=== PATIENT | female | born 1945 | race Caucasian/White ===

== ENCOUNTER 2022-03-06 08:53 | Day surgery (SDC) | payer MEDICARE, SELFPAY ==
[2022-03-06] VITALS (8 sets, daily range): BP systolic 117–152; BP diastolic 52–81; PULSE 56–64; RESP 16; TEMP 36.2–36.5; O2SAT 94–95; BMI 26.6
[2022-03-06] MEDS: Lactated Ringers 1,000 ML 15 ML IV (09:22)
[2022-03-06] MEDS: Lidocaine 1% (5 ml sdv) 5 ML Vial (10:13)
[2022-03-06] MEDS: MethylPREDNISolone Acetate 40 MG/ML Vial IM ×2 (10:13)
[2022-03-06] MEDS: Bupivacaine 0.25% 30 ML Vial (10:13)
[2022-03-06] MEDS: 0.9% Normal Saline (Pres. free 10 ML Vial (10:13)
--- NOTE | 2022-03-06 10:30 | RAD_ITS ---
INDICATION: Caudal epidural block. EXAMINATION/TECHNIQUE: X-RAY - IR Fluoro Guide Injection Spine COMPARISON: None. FLUOROSCOPY TIME: 0:04 minutes FINDINGS: 2 spot fluoroscopic images were obtained intraoperatively. Images demonstrate the needle placement for caudal epidural block. No radiologist was present for the procedure, please refer to operative report for details. RAD/Fluor Guidance for Spine Inj IMPRESSION: Please refer to operative report for details. Electronically Signed: Papi Jose MD at 7:53 EDT ,
--- NOTE | 2022-03-06 12:29 | OP.PCM_ITS ---
Report of Operation Date of Procedure: 03/06/22 Pre-Operative Diagnosis: Lumbosacral radiculopathy, lumbosacral degenerative di sc disease, lumbosacral spinal stenosis Post-Operative Diagnosis: Lumbosacral radiculopathy, lumbosacral degenerative disc disease, lumbosacral spinal stenosis Surgery/Procedure Performed:: Caudal epidural steroid injection under fluoroscopic guidance Type of Anesthesia: MAC Estimated Blood Loss (mL): Minimal Description of Procedure: DESCRIPTION OF PROCEDURE: History and physical of today was reviewed. Risks and benefits of the procedure were explained. The patient understood and agreed to proceed. Informed consent was obtained. IV inserted per routine protocol. The patient was taken to the operating room and placed in the prone position with a pillow positioned underneath the abdomen. The lower back and tailbone area was prepped and draped in a sterile fashion using iodine x3. Under fluoroscopy guidance on a lateral view, the caudal space was identified. The skin and subcutaneous tissue was anesthetized with approximately 3 mL of 1% lidocaine using a 25-gauge regular needle. Under direct visualization with fluoroscopy, using a 22-gauge 3-1/2-inch spinal needle, the needle was advanced via the skin through the sacral hiatus. The tip of the needle was passed through the sacrococcygeal ligament and advanced to approximately S4 area. After negative aspiration of blood or CSF, a total of 3 mL of contrast was injected to confirm correct placement of the needle as well as cephalad spread. The spread was followed to approximately L5 area. After confirmation on AP as well as lateral view and repeated negative aspiration, a total of 15 mL of preservative-free 0.125% Marcaine with 80 mg of Depo-Medrol was injected easily. The needle was then removed intact. The patient experienced no sign or symptoms of intrathecal or intravascular injection. The patient experienced no paresthesia. The procedure was completed without any apparent difficulty or any complications. The patient appeared to tolerate it well. ASSESSMENT AND PLAN: This is a 76-year-old female with lumbosacral radiculopathy, lumbosacral degenerative disc disease, lumbosacral spinal stenosis status post caudal epidural steroid injection, patient will continue her current medications, patient will follow in approximately 2 weeks for reevaluation. Complications None
== END 2022-03-06 11:37 | disposition home or self-care (01) ==
LOC: SDC 08:57 → AC 09:07
PROVIDERS: PCP Family Medicine; Referring Provider Anesthesiology Pain Medicine; Visit Provider Anesthesiology Pain Medicine
PROC: 3E0S3BZ Introduction of Anesthetic Agent into Epidural Space, Percutaneous Approach (ICD-10-PCS; CPT 62282; principal; 2022-03-06 10:25)
DX: M51.17 Intervertebral disc disorders with radiculopathy, lumbosacral region (principal); M48.07 Spinal stenosis, lumbosacral region; I10 Essential (primary) hypertension; E78.00 Pure hypercholesterolemia, unspecified; K21.9 Gastro-esophageal reflux disease without esophagitis; F32.A Depression, unspecified; F41.9 Anxiety disorder, unspecified; Z79.82 Long term (current) use of aspirin; Z79.899 Other long term (current) drug therapy
CPT/HCPCS: 62323; 64483; 77003; J7120; J3490

== ENCOUNTER 2022-09-11 05:43 | Day surgery (SDC) | payer MEDICARE, SELFPAY ==
[2022-09-11 06:22] VITALS: BP 151/77; PULSE 64; RESP 16; TEMP 36.4; O2SAT 94; BMI 26.7
[2022-09-11] MEDS: Lactated Ringers 1,000 ML 15 ML IV (06:30)
--- NOTE | 2022-09-11 06:30 | RAD_ITS ---
PROCEDURE: Right L4-S1 radiofrequency ablation. DATE OF EXAMINATION: 09/11/2022. INDICATION: Female, 77 years old. Chronic low back pain. FLUOROSCOPY TIME (if supplied): (16 seconds) minutes/seconds. 3.72 mGy. 7 images were submitted. RAD/Lumbar Spine 2 or 3 Views IMPRESSION: Intraoperative imaging provided for right L5-S1 radiofrequency ablation. Electronically Signed: Naeem Martines MD at 8:32 EST ,
[2022-09-11] MEDS: Lidocaine 1% (20 ml mdv) 20 ML Vial (07:45)
[2022-09-11] MEDS: MethylPREDNISolone Acetate 40 MG/ML Vial IM (07:46)
--- NOTE | 2022-09-11 07:58 | PCM.OPRPT ---
Report of Operation Date of Procedure: 09/11/22 Pre-Operative Diagnosis: Lumbosacral spondylosis, lumbosacral degenerative disc disease, lumbar facet arthropathy Post-Operative Diagnosis: Lumbosacral spondylosis, lumbosacral degenerative disc disease, lumbar facet arthropathy Surgery/Procedure Performed:: Right-sided lumbar radiofrequency ablation of the medial branch L4, L5, S1 Type of Anesthesia: MAC Estimated Blood Loss (mL): Minimal Description of Procedure: History and physical today was reviewed. Risks and benefits of procedure explained. The patient understood, agreed to the procedure and informed consent was obtained. IV inserted per routine protocol. The patient was taken to the operating room, placed in the prone position with a pillow positioned underneath the abdomen. The right side of the lower back was prepped and draped in a sterile fashion using iodine x 3. Under fluoroscopy guidance, on an oblique view, the L3 through S1 vertebral bodies were visualized. The skin and subcutaneous tissue was anesthetized with approximately 10 mL of 1% lidocaine using a 25-gauge regular needle. Under direct visualization with fluoroscopy at approximately 25-degree angle, starting on the right L3, ending on the right S1 passing through the L4-L5 using a 20-gauge 15 cm with a 10 mm curved active tip radiofrequency ablation needle the needle passed through the skin. The tip of the needle was maneuvered and directed towards the superior and medial gutter of the transverse process at the vicinity of the medial branch. Once the tip of the needle was in contact with the bone, the needle pulled approximately 2 mm up the bone. The stylet of each needle was then removed. After negative aspiration of blood with CSF and confirmation of AP as well as oblique view, radiofrequency ablation probe was then inserted at each level. Impedance was then recorded at L3 to be 297, at L4 254, at L5 296, at S1 240 ohm. Motor-evoked potential was then initiated to 1.5 volt without any motor response at each corresponding level. The probe was then removed intact and a total of 6 mL preservative-free 1% lidocaine was injected in divided doses between those 4 levels after negative aspiration of blood with CSF. The radiofrequency ablation probe was then reinserted after confirmation of AP, oblique as well as lateral view. Radiofrequency ablation was then initiated to 80 degrees Celsius for 90 seconds at each level. Once concluded, the probe was then removed intact and a total of 6 mL of preservative-free 0.25% Marcaine with 40 mg Depo-Medrol was injected in divided doses between those 4 levels. The needles were then removed intact. The patient experienced no signs or symptoms of intrathecal, intravascular injection. The patient experienced no paraesthesia. The procedure was completed without any apparent difficulty, any complication. The patient appeared to tolerate well. Sensory as well as motor exam was unchanged from prior to procedure. ASSESSMENT AND PLAN: This is a 77-year-old female with lumbosacral spondylosis, lumbosacral degenerative disc disease, lumbar facet arthropathy, status post right-sided radiofrequency ablation of the medial branch L4 through S1. The patient will continue her current medications. The patient will follow up in approximately 2 weeks for reevaluation. Complications None
[2022-09-11 08:00] VITALS: BP 123/89; BP 151/77; PULSE 55; RESP 16; TEMP 36.9; O2SAT 95
[2022-09-11 08:05] VITALS: BP 144/78; BP 151/77; PULSE 58; RESP 16; O2SAT 97
[2022-09-11 08:10] VITALS: BP 144/68; BP 151/77; PULSE 53; RESP 16; O2SAT 96
[2022-09-11 08:15] VITALS: BP 132/69; BP 151/77; PULSE 54; RESP 16; TEMP 37; O2SAT 95
[2022-09-11 08:33] VITALS: BP 151/77
== END 2022-09-11 08:48 | disposition home or self-care (01) ==
LOC: SDC 05:47 → AC 05:48
PROVIDERS: PCP Family Medicine; Referring Provider Family Medicine; Visit Provider Anesthesiology Pain Medicine
PROC: (CPT 64635; principal; 2022-09-11 07:15)
DX: M47.817 Spondylosis without myelopathy or radiculopathy, lumbosacral region (principal); M46.96 Unspecified inflammatory spondylopathy, lumbar region; R56.9 Unspecified convulsions; M51.37 Other intervertebral disc degeneration, lumbosacral region; I10 Essential (primary) hypertension; Z79.82 Long term (current) use of aspirin; Z79.899 Other long term (current) drug therapy
CPT/HCPCS: 64635; 64636; 01992; 72100; 76000; J7120

== ENCOUNTER 2022-10-23 06:17 | Day surgery (SDC) | payer MEDICARE, SELFPAY ==
[2022-10-23 06:52] VITALS: BP 150/72; PULSE 63; RESP 16; TEMP 36.1; O2SAT 95; BMI 26.7
[2022-10-23] MEDS: Lactated Ringers 1,000 ML 15 ML IV (06:55)
--- NOTE | 2022-10-23 08:07 | RAD_ITS ---
STUDY: LEFT L4-L5 AND L5-S1 RADIOFREQUENCY ABLATION. REASON FOR EXAM: Female, 77 years old. Lumbar radiofrequency ablation L4, L5, S1 FLUOROSCOPY TIME (if supplied): ( 16 seconds ) minutes/seconds. 3.77 mGy. Radiographic spot views were obtained. RAD/L/S Spine Min 4 Views IMPRESSION: Intraoperative imaging provided for left L4-L5 and L5-S1 radiofrequency ablation. Electronically Signed: Naeem Martines MD at 15:14 EDT ,
[2022-10-23] MEDS: MethylPREDNISolone Acetate 80 MG/ML Vial (08:09)
[2022-10-23] MEDS: Lidocaine 1% (30 ml sdv) 30 ML Vial (08:10)
--- NOTE | 2022-10-23 08:16 | PCM.OPRPT ---
Report of Operation Date of Procedure: 10/23/22 Pre-Operative Diagnosis: Lumbosacral spondylosis, lumbosacral degenerative disc disease, lumbar facet arthropathy Post-Operative Diagnosis: Lumbosacral spondylosis, lumbosacral degenerative disc disease, lumbar facet arthropathy Surgery/Procedure Performed:: Left-sided lumbar radiofrequency ablation of the medial branch L4, L5, S1 Type of Anesthesia: MAC Estimated Blood Loss (mL): Minimal Description of Procedure: History and physical today was reviewed. Risks and benefits of procedure explained. The patient understood, agreed to the procedure and informed consent was obtained. IV inserted per routine protocol. The patient was taken to the operating room, placed in the prone position with a pillow positioned underneath the abdomen. The left side of the lower back was prepped and draped in a sterile fashion using iodine x 3. Under fluoroscopy guidance, on an oblique view, the L3 through S1 vertebral bodies were visualized. The skin and subcutaneous tissue was anesthetized with approximately 10 mL of 1% lidocaine using a 25-gauge regular needle. Under direct visualization with fluoroscopy at approximately 25-degree angle, starting on the left L3, ending on the left S1 passing through the L4-L5 using a 20-gauge 15 cm with a 10 mm curved active tip radiofrequency ablation needle the needle passed through the skin. The tip of the needle was maneuvered and directed towards the superior and medial gutter of the transverse process at the vicinity of the medial branch. Once the tip of the needle was in contact with the bone, the needle pulled approximately 2 mm up the bone. The stylet of each needle was then removed. After negative aspiration of blood with CSF and confirmation of AP as well as oblique view, radiofrequency ablation probe was then inserted at each level. Impedance was then recorded at L3 to be 216, at L4 209, at L5 203, at S1 280 ohm. Motor-evoked potential was then initiated to 1.5 volt without any motor response at each corresponding level. The probe was then removed intact and a total of 6 mL preservative-free 1% lidocaine was injected in divided doses between those 4 levels after negative aspiration of blood with CSF. The radiofrequency ablation probe was then reinserted after confirmation of AP, oblique as well as lateral view. Radiofrequency ablation was then initiated to 80 degrees Celsius for 90 seconds at each level. Once concluded, the probe was then removed intact and a total of 6 mL of preservative-free 0.25% Marcaine with 40 mg Depo-Medrol was injected in divided doses between those 4 levels. The needles were then removed intact. The patient experienced no signs or symptoms of intrathecal, intravascular injection. The patient experienced no paraesthesia. The procedure was completed without any apparent difficulty, any complication. The patient appeared to tolerate well. Sensory as well as motor exam was unchanged from prior to procedure. ASSESSMENT AND PLAN: This is a 77-year-old female with lumbosacral spondylosis, lumbosacral degenerative disc disease, lumbar facet arthropathy, status post left-sided lumbar radiofrequency ablation of the medial branch L4 through S1. The patient will continue her current medications. The patient will follow up in approximately 2 weeks for reevaluation. Complications None
[2022-10-23 08:20] VITALS: BP 115/59; BP 150/72; PULSE 55; RESP 16; TEMP 36.4; O2SAT 93
[2022-10-23 08:25] VITALS: BP 109/55; BP 150/72; PULSE 52; RESP 16; O2SAT 95
[2022-10-23 08:30] VITALS: BP 116/62; BP 150/72; PULSE 52; RESP 16; O2SAT 95
[2022-10-23 08:34] VITALS: BP 128/62; BP 150/72; PULSE 58; RESP 16; TEMP 36.1; O2SAT 97
[2022-10-23 08:54] VITALS: BP 150/72
== END 2022-10-23 09:45 | disposition home or self-care (01) ==
LOC: SDC 06:23 → AC 06:23 → ACINP 09:20
PROVIDERS: PCP Family Medicine; Referring Provider Anesthesiology Pain Medicine; Visit Provider Anesthesiology Pain Medicine
PROC: (CPT 64635; principal; 2022-10-23 07:55)
DX: M47.817 Spondylosis without myelopathy or radiculopathy, lumbosacral region (principal); M46.96 Unspecified inflammatory spondylopathy, lumbar region; R56.9 Unspecified convulsions; M51.37 Other intervertebral disc degeneration, lumbosacral region; I10 Essential (primary) hypertension; Z79.899 Other long term (current) drug therapy
CPT/HCPCS: 64635; 64636; 72110; 76000; J7120

== ENCOUNTER 2023-06-11 06:37 | Day surgery (SDC) | payer MEDICARE, SELFPAY ==
[2023-06-11 07:00] VITALS: BP 135/66; PULSE 60; RESP 16; TEMP 36.3; O2SAT 97; BMI 25.7
[2023-06-11] MEDS: Lactated Ringers 1,000 ML 15 ML IV (07:02)
--- NOTE | 2023-06-11 07:56 | RAD_ITS ---
PROCEDURE: Right L4-S1 radiofrequency ablation. DATE OF EXAMINATION: June 11, 2023. INDICATION: Female, 77 years old. Chronic back pain. FLUOROSCOPY TIME (if supplied): (23.3 seconds) minutes/seconds. 1.42 mGy . 9 images were submitted. RAD/Lumbar Spine 2 or 3 Views IMPRESSION: Intraoperative imaging provided for right L4-S1 radiofrequency ablation. Electronically Signed: Naeem Martines MD at 8:49 EST ,
[2023-06-11] MEDS: MethylPREDNISolone Acetate 40 MG/ML Vial (08:07)
[2023-06-11] MEDS: Lidocaine 1% (20 ml mdv) 20 ML Vial (08:08)
--- NOTE | 2023-06-11 08:19 | PCM.OPRPT ---
Report of Operation Date of Procedure: 06/11/23 Description of Surgical Findings:: Pre-Operative Diagnosis: Lumbosacral spondylosis, lumbosacral degenerative disc disease, lumbar facet arthropathy Post-Operative Diagnosis: Lumbosacral spondylosis, lumbosacral degenerative disc disease, lumbar facet arthropathy Surgery/Procedure Performed:: Right-sided lumbar radiofrequency ablation of the medial branch L4, L5, S1 Type of Anesthesia: MAC Estimated Blood Loss (mL): Minimal Description of Procedure: History and physical today was reviewed. Risks and benefits of procedure explained. The patient understood, agreed to the procedure and informed consent was obtained. IV inserted per routine protocol. The patient was taken to the operating room, placed in the prone position with a pillow positioned underneath the abdomen. The right side of the lower back was prepped and draped in a sterile fashion using iodine x 3. Under fluoroscopy guidance, on an oblique view, the L3 through S1 vertebral bodies were visualized. The skin and subcutaneous tissue was anesthetized with approximately 10 mL of 1% lidocaine using a 25-gauge regular needle. Under direct visualization with fluoroscopy at approximately 25-degree angle, starting on the right L3, ending on the right S1 passing through the L4-L5 using a 20-gauge 15 cm with a 10 mm curved active tip radiofrequency ablation needle the needle passed through the skin. The tip of the needle was maneuvered and directed towards the superior and medial gutter of the transverse process at the vicinity of the medial branch. Once the tip of the needle was in contact with the bone, the needle pulled approximately 2 mm up the bone. The stylet of each needle was then removed. After negative aspiration of blood with CSF and confirmation of AP as well as oblique view, radiofrequency ablation probe was then inserted at each level. Impedance was then recorded at L3 to be 258, at L4 258, at L5 292, at S1 280 ohm. Motor-evoked potential was then initiated to 1.5 volt without any motor response at each corresponding level. The probe was then removed intact and a total of 6 mL preservative-free 1% lidocaine was injected in divided doses between those 4 levels after negative aspiration of blood with CSF. The radiofrequency ablation probe was then reinserted after confirmation of AP, oblique as well as lateral view. Radiofrequency ablation was then initiated to 80 degrees Celsius for 90 seconds at each level. Once concluded, the probe was then removed intact and a total of 6 mL of preservative-free 0.25% Marcaine with 40 mg Depo-Medrol was injected in divided doses between those 4 levels. The needles were then removed intact. The patient experienced no signs or symptoms of intrathecal, intravascular injection. The patient experienced no paraesthesia. The procedure was completed without any apparent difficulty, any complication. The patient appeared to tolerate well. Sensory as well as motor exam was unchanged from prior to procedure. ASSESSMENT AND PLAN: This is a 77-year-old female with lumbosacral spondylosis, lumbosacral degenerative disc disease, lumbar facet arthropathy, status post right-sided radiofrequency ablation of the medial branch L4 through S1. The patient will continue her current medications. The patient will follow up in approximately 2 weeks for reevaluation.
[2023-06-11 08:20] VITALS: BP 100/63; BP 135/66; PULSE 56; RESP 16; TEMP 36.2; O2SAT 93
[2023-06-11 08:25] VITALS: BP 111/66; BP 135/66; PULSE 55; RESP 16; O2SAT 95
[2023-06-11 08:30] VITALS: BP 117/64; BP 135/66; PULSE 65; RESP 16; O2SAT 94
[2023-06-11 08:35] VITALS: BP 112/54; BP 135/66; PULSE 68; RESP 16; TEMP 37; O2SAT 95
[2023-06-11 08:44] VITALS: BP 135/66
== END 2023-06-11 09:08 | disposition home or self-care (01) ==
LOC: SDC 06:45 → AC 06:53
PROVIDERS: Referring Provider Anesthesiology Pain Medicine; Visit Provider Anesthesiology Pain Medicine
PROC: (CPT 64635; principal; 2023-06-11 08:25)
DX: M47.817 Spondylosis without myelopathy or radiculopathy, lumbosacral region (principal); M51.37 Other intervertebral disc degeneration, lumbosacral region; M54.17 Radiculopathy, lumbosacral region; M48.07 Spinal stenosis, lumbosacral region; K21.9 Gastro-esophageal reflux disease without esophagitis; I10 Essential (primary) hypertension; E78.00 Pure hypercholesterolemia, unspecified; Z79.82 Long term (current) use of aspirin; Z79.899 Other long term (current) drug therapy
CPT/HCPCS: 64635; 01992; 72100; 76000; J7120

== ENCOUNTER 2023-10-08 07:08 | Day surgery (SDC) | payer MEDICARE, SELFPAY ==
[2023-10-08 07:30] VITALS: BP 120/66; PULSE 68; RESP 16; TEMP 36.2; O2SAT 98; BMI 26.3
[2023-10-08] MEDS: Lactated Ringers 1,000 ML 15 ML IV (07:45)
--- NOTE | 2023-10-08 08:19 | RAD_ITS ---
PROCEDURE: Caudal epidural steroid injection. DATE OF EXAMINATION: October 08, 2023. INDICATION: Female, 78 years old. Chronic low back pain. FLUOROSCOPY TIME (if supplied): (3 seconds) minutes/seconds. 2.01 mgy. One spot image was submitted. RAD/Spine 1 View Any Level IMPRESSION: Intraoperative imaging provided for caudal epidural steroid injection. Electronically Signed: Naeem Martines MD at 9:45 EDT ,
[2023-10-08] MEDS: Lidocaine 1% (5 ml sdv) 5 ML Vial (08:28)
[2023-10-08] MEDS: 0.9% Normal Saline (Pres. free 10 ML Vial (08:28)
[2023-10-08] MEDS: MethylPREDNISolone Acetate 80 MG/ML Vial (08:28)
--- NOTE | 2023-10-08 08:33 | OP.PCM_ITS ---
Report of Operation Date of Procedure: 10/08/23 Pre-Operative Diagnosis: Lumbosacral radiculopathy, lumbosacral degenerative di sc disease, lumbosacral spinal stenosis Post-Operative Diagnosis: Lumbosacral radiculopathy, lumbosacral degenerative disc disease, lumbosacral spinal stenosis Surgery/Procedure Performed:: Diagnostic/therapeutic caudal epidural steroid injection under fluoroscopic guidance Type of Anesthesia: MAC Estimated Blood Loss (mL): Minimal Description of Procedure: DESCRIPTION OF PROCEDURE: History and physical of today was reviewed. Risks and benefits of the procedure were explained. The patient understood and agreed to proceed. Informed consent was obtained. IV inserted per routine protocol. The patient was taken to the operating room and placed in the prone position with a pillow positioned underneath the abdomen. The lower back and tailbone area was prepped and draped in a sterile fashion using iodine x3. Under fluoroscopy guidance on a lateral view, the caudal space was identified. The skin and subcutaneous tissue was anesthetized with approximately 3 mL of 1% lidocaine using a 25-gauge regular needle. Under direct visualization with fluoroscopy, using a 22-gauge 3-1/2-inch spinal needle, the needle was advanced via the skin through the sacral hiatus. The tip of the needle was passed through the sacrococcygeal ligament and advanced to approximately S4 area. After negative aspiration of blood or CSF, a total of 3 mL of contrast was injected to confirm correct placement of the needle as well as cephalad spread. The spread was followed to approximately L5 area. After confirmation on AP as well as lateral view and repeated negative aspiration, a total of 15 mL of preservative-free 0.125% Marcaine with 80 mg of Depo-Medrol was injected easily. The needle was then removed intact. The patient experienced no sign or symptoms of intrathecal or intravascular injection. The patient experienced no paresthesia. The procedure was completed without any apparent difficulty or any complications. The patient appeared to tolerate it well. ASSESSMENT AND PLAN: This is a 78-year-old female with lumbosacral radiculopathy, lumbosacral degenerative disc disease, lumbosacral spinal stenosis status post diagnostic/therapeutic caudal epidural steroid injection, patient will continue her current medications, patient will follow in approximately 2 weeks for reevaluation. Complications None
[2023-10-08 08:35] VITALS: BP 120/66; BP 142/57; PULSE 61; RESP 16; TEMP 36.4; O2SAT 93
[2023-10-08 08:40] VITALS: BP 120/66; BP 127/58; PULSE 55; RESP 16; O2SAT 93
[2023-10-08 08:45] VITALS: BP 120/66; BP 129/59; PULSE 54; RESP 16; O2SAT 94
[2023-10-08 08:56] VITALS: BP 120/66; BP 130/55; PULSE 52; RESP 16; TEMP 36.6; O2SAT 95
[2023-10-08 09:14] VITALS: BP 120/66
== END 2023-10-08 09:21 | disposition home or self-care (01) ==
LOC: SDC 07:14 → AC 07:16
PROVIDERS: Visit Provider Anesthesiology Pain Medicine
PROC: 3E0S3BZ Introduction of Anesthetic Agent into Epidural Space, Percutaneous Approach (ICD-10-PCS; CPT 62282; principal; 2023-10-08 08:25)
DX: M51.17 Intervertebral disc disorders with radiculopathy, lumbosacral region (principal); M48.07 Spinal stenosis, lumbosacral region; M47.817 Spondylosis without myelopathy or radiculopathy, lumbosacral region; M51.37 Other intervertebral disc degeneration, lumbosacral region; M16.11 Unilateral primary osteoarthritis, right hip; Z79.899 Other long term (current) drug therapy; K21.9 Gastro-esophageal reflux disease without esophagitis; I10 Essential (primary) hypertension
CPT/HCPCS: 62323; 01992; 64483; 72020; 76000; J7120; J3490

== ENCOUNTER 2024-01-21 07:29 | Day surgery (SDC) | payer MEDICARE, SELFPAY ==
[2024-01-21] VITALS (7 sets, daily range): BP systolic 98–148; BP diastolic 55–73; PULSE 44–59; RESP 16; TEMP 36–36.3; O2SAT 91–98; BMI 26.1
--- NOTE | 2024-01-21 08:00 | RAD_ITS ---
PROCEDURE: Left-sided steroid injection from L4 to S1 DATE OF EXAMINATION: 01/21/2024 INDICATION: Female, 78 years old. Acute low back pain PHYSICIAN: Needle placement and procedure performed by Dr. Altamirano FLUOROSCOPY TIME (if supplied): (9.8) seconds, dose of 2.32 Mgy, 2 fluoroscopic images obtained RADIATION DOSAGE (If Supplied By Facility): CTDIvol = ( ) mGy, DLP = ( ) mGycm CONSENT: The risks, benefits and alternatives to the procedure were explained to the patient, and the patient agreed to the procedure and signed the consent. SEDATION: Local STERILE BARRIER TECHNIQUE: The following sterile barrier precautions were used during the procedure: hand hygiene; use of 2% chlorhexidine aseptic; use of a cap, mask, sterile gown, sterile gloves, sterile full body drape, and a large sterile sheet. PROCEDURE/TECHNIQUE: (All elements of maximal sterile barrier technique followed, including US elements as applicable) The risks, benefits, and alternatives to the procedure were explained to patient, and the patient agreed to the procedure and signed a consent form for the procedure. A timeout was performed to confirm the patient''s identity, the type of procedure, to be performed and the site of entry. Fluoroscopy was provided by radiology as patient underwent facet joint injections at L4 and S1 by Dr. Altamirano. No complications noted. RAD/Lumbar Spine 2 or 3 Views IMPRESSION: No complications noted during fluoroscopic guidance for Dr. Rabago to perform left-sided facet injections Electronically Signed: Donato Chowdhury MD at 9:54 EDT ,
[2024-01-21] MEDS: Lactated Ringers 1,000 ML 15 ML IV (08:01)
--- NOTE | 2024-01-21 08:20 | PCM.PRE.AN2 ---
ASA Classification* ASA Classification ASA Classification: 2 Assessment & Plan Anesthesia* Anesthesia Assessment Anesthesia Assessment: Discussed sedation and/or anesthesia options, risks, benefits, and alternatives with patient/parents/legal guardian/POA. Questions invited. The patient/parents/legal guardian/POA seems to understand and agrees to proceed with anesthesia plan. Reviewed the physical assessment, medical history, allergy history and patient home medications list prior to surgery/procedure/anesthetic and documented any changes. Performed airway and anesthesia risk assessments. Anesthesia Type Anesthesia Type: MAC (see written pre anesthesia record for complete assessment) Anesthesia Focused Assessment* Temperature: 96.9 F Pulse Rate: 55 Blood Pressure: 148/66 Respiratory Rate: 16 Pulse Ox: 98 Airway Assessment Mouth opens: >3 cm Mallampati Score: II Focused Labs Anesthesia Preop lab: CBC CHEMISTRY COAG Pre-Assessment Diagnosis/Proposed Procedure Planned Operative Procedure(s): rin Anesthesia History Anesthesia History - associate designer: Anesthesia History - associate designer Hx Hospitalization No 06/08/23 12:37 Any Problems With Anesthesia No 06/08/23 12:37 Cholinesterase deficiency No 06/08/23 12:37 You/Your Family Experience No 06/08/23 12:37 fever (hyperthermia) with Relationship Recent Exposure to Contagious No 01/21/24 07:49 Disease Does patient have nerve No 06/08/23 12:37 stimulator Patient instructed to have device shut off --Does patient have Pacemaker No 01/21/24 07:49 or ICD? When Was Last Pacemaker Check QUESTION #4 FULL TEXT: You/Your Family Experience fever (hyperthermia) with Anesthesia Last Oral Intake Last Oral intake: Last Oral Intake NPO since 00:00 01/21/24 07:49 Meds taken in AM with sips of No 01/21/24 07:49 water? Meds patient instructed to take am of surgery PONV PONV - associate designer: PONV - associate designer Female HX of Motion Sickness HX of N/V After Surgery Non-Smoker Duration of Surgery greater than 60 minutes Number of Risk Factors PONV Score Height & Weight Height & Weight: Anesthesia: Height & Weight Height 5 ft 4 in 01/21/24 07:49 Weight: 69 kg 01/21/24 07:49 Body Mass Index (BMI) 26.1 01/21/24 07:49 Respiratory Assessment Respiratory Assessment - associate designer: Respiratory Tract Infection Hx - associate designer Hx Respiratory Tract Infection No 06/08/23 12:37 STOP Sleep Apnea STOP Sleep Apnea - associate designer: STOP Sleep Apnea - associate designer Hx Hypertension Yes: CONTROLLED ON MED 06/08/23 12:37 Hx Sleep Apnea No 10/08/23 08:56 CPAP BIPAP Do you snore loudly (louder than talking or can be heard Do you often feel tired/ fatigued/ sleepy during daytime? Has anyone observed you stop breathing during sleep? STOP Results QUESTION #5 FULL TEXT : Do you snore loudly (louder than talking or can be heard through closed doors)? Tobacco Use History Tobacco Use History - associate designer: Tobacco Use History - associate designer Tobacco Use Smoking Status Never smoker 06/08/23 12:37 Hx Tobacco Use No 06/08/23 12:37 Years Smoking Packs Smoked per Day Smoking Cessation Date was within the last 15 years Hx Smoking Cessation Date Hx Smoking Cessation Counseling Hematologic Medial History Hematologic Hx - associate designer: Hematologic Medical Hx - documentation consultant Hx of Blood Transfusion Hx of Transfusion in last 3 Months Date of Last Transfusion (if within last 3 months) Ever experience any problems with transfusion(s)? Specify any problems Hx of Preganancy in last 3 Months Nurse Filling Out Transfusion & Questions: Date: Time: Patient unable to answer at this time (ie. confused, unrespo /Reproduction History /Reproductive History - associate designer: /Reproductive Hx- associate designer Hx Now Gestational Age (in weeks): EDC: Hx Hx Para Hx Section SAB Active Medications Active Medications: Current Medications Generic Name Dose Route Start Last Admin Trade Name Freq PRN Reason Stop Dose Admin Lactated Ringer's 1,000 mls @ 15 mls/hr 01/21/24 07:45 01/21/24 08:01 IV 15 mls/hr .Q48H MARIBELL Administration PFSH Medical History (Updated 06/08/23 @ 12:37 by Eliane Blount) Post-menopausal Arthritis Anemia Non-smoker History of echocardiogram History of stress test Wears glasses Depression Anxiety High cholesterol Back pain Seizures Gastric reflux Hypertension Home Medications ?Medication ?Instructions ?Recorded ?Last Taken ?Type alprazolam 0.25 mg tablet (Xanax) 0.25 mg PO DAILY 03/01/22 06/11/23 History amlodipine 5 mg tablet 5 mg PO DAILY 03/01/22 10/08/23 05:30 History aripiprazole 10 mg tablet (Abilify) 10 mg PO DAILY 03/01/22 09/10/22 History aspirin 81 mg tablet,delayed 81 mg PO DAILY 03/01/22 06/10/23 History release azelastine 137 mcg (0.1 %) nasal 1 spray intranasal BID 03/01/22 09/10/22 History spray fluticasone propionate 50 1 spray intranasal DAILY 03/01/22 09/10/22 History mcg/actuation nasal spray,suspension (Flonase Allergy Relief) levetiracetam 500 mg tablet 500 mg PO DAILY 03/01/22 09/10/22 History (Keppra) losartan 50 mg tablet 50 mg PO BID 03/01/22 10/08/23 05:30 History primidone 50 mg tablet (Mysoline) 50 mg PO QHS 03/01/22 09/10/22 History rabeprazole 20 mg tablet,delayed 20 mg PO DAILY 03/01/22 09/10/22 History release (AcipHex) rosuvastatin 20 mg tablet (Crestor) 20 mg PO QHS 03/01/22 09/10/22 History tolterodine 2 mg tablet (Detrol) 4 mg PO DAILY 03/01/22 09/10/22 History pregabalin 25 mg capsule (Lyrica) 25 mg PO TID 10/08/23 Unknown History Allergy/AdvReac Type Severity Reaction Status Date / Time amoxicillin (From Augmentin) Allergy Hives Verified 01/21/24 07:46 clavulanic acid (From Allergy Hives Verified 01/21/24 07:46 Augmentin) Sulfa (Sulfonamide Allergy Hives Verified 01/21/24 07:46 Antibiotics) Surgical History (Updated 06/08/23 @ 12:37 by Eliane Blount) Hx of surgical procedure Social History Smoking Status: Never smoker Review of Systems (Anesthesia) ROS Narrative System reviewed and no additional complaints, except as documented.
[2024-01-21] MEDS: MethylPREDNISolone Acetate 80 MG/ML Vial (09:03)
[2024-01-21] MEDS: Lidocaine 1% (5 ml sdv) 5 ML Vial (09:03)
--- NOTE | 2024-01-21 09:08 | OP.PCM_ITS ---
Report of Operation Date of Procedure: 01/21/24 Description of Surgical Findings:: PREOPERATIVE DIAGNOSIS: Lumbosacral radiculopathy, lumbosacral degenerative disc disease, postlaminectomy syndrome of the lumbar spine, lumbosacral spinal stenosis POSTOPERATIVE DIAGNOSIS: Lumbosacral radiculopathy, lumbosacral degenerative disc disease, postlaminectomy syndrome of the lumbar spine, lumbosacral spinal stenosis PROCEDURE PERFORMED: Right-sided lumbar transforaminal epidural steroid injection, L4-5 and L5-S1. ANESTHESIA: MAC BLOOD LOSS: Minimal COMPLICATIONS: None DESCRIPTION OF PROCEDURE: History and physical of today was reviewed. Risks and benefits of the procedure were explained. The patient understood and agreed to proceed. Informed consent was obtained. IV inserted per routine protocol. The patient was taken to the operating room and placed in the prone position with a pillow positioned underneath the abdomen. The right side of the lower back was prepped and draped in a sterile fashion using iodine x3. Under flu oroscopy guidance on oblique view, the L4 through S1 vertebral bodies were visualized. The skin and subcutaneous tissue was anesthetized with approximately 5 mL of 1% lidocaine using a 25-gauge regular needle. Under direct visualization with fluoroscopy at approximately 35-degree angle, starting on the right L4, ending on the right L5, using a 22-gauge 5-inch spinal needle, the needle was advanced via the skin. The tip of the needle was maneuvered and directed towards the inferior and medial gutter of the transverse process at the superiormost aspect of the neural foramen. Once the tip of the needle was at the vicinity of the foramen, after negative aspiration for blood or CSF, a total of 1 mL of contrast was injected in divided doses between both levels to confirm correct placement of the needle as well as medial spread. The confirmation was obtained on AP as well as lateral view. After repeated negative aspiration and confirmation on AP as well as lateral view, a total of 6 mL of preservative-free 0.25% Marcaine with 80 mg of Depo-Medrol was injected in divided doses between both levels. The needles were then removed intact. The patient experienced no sign or symptoms of intrathecal or intravascular injection. The patient experienced no paresthesia. The procedure was completed without any apparent difficulty or any complications. The patient appeared to tolerate it well. Assessment and plan: This is a 78-year-old female with lumbosacral radiculopathy, lumbosacral degenerative disc disease, postlaminectomy syndrome of the lumbar spine, lumbosacral spinal stenosis status post right-sided lumbar transforaminal epidural steroid injection L4-5, L5-S1, patient will continue her current medications, patient will follow up in approximately 2 weeks for reevaluation.
--- NOTE | 2024-01-21 09:13 | PCM.POST.ANE ---
Anesthesia: Postop Eval I Current Vital Signs Temperature: 96.8 F Pulse Rate: 55 Blood Pressure: 98/57 Respiratory Rate: 16 Pulse Ox: 95 Oxygen Delivery Method: Room Air Assessment Airway patent: Yes Spontaneous unlabored respirations: Yes Mental status: Awake and Calm nausea: No Vomiting: No Anesthesia Complication: No Fluid Hydration Crystalloid volume administer (ml): 500 Total IV fluid infused: 500 Progress Note Anesthesia document: Postop Eval 1 completed: Yes
--- NOTE | 2024-01-21 09:33 | EKGRS_ITS ---
Test Reason : POSTOP Blood Pressure : / mmHG Vent. Rate : 059 BPM Atrial Rate : 059 BPM P-R Int : 194 ms QRS Dur : 154 ms QT Int : 500 ms P-R-T Axes : -17 -36 057 degrees QTc Int : 495 ms Sinus bradycardia with Premature supraventricular complexes Left axis deviation Left bundle branch block Abnormal ECG No previous ECGs available Confirmed by Efra Busby ([id number]), movie editor JAY GOLD ([id number]) on 01/25/2024 9:24:02 AM Referred By: Varun Altamirano Confirmed By:Efra Busby
--- NOTE | 2024-01-21 09:36 | PCM.POSTANE2 ---
Anesthesia Postop Eval I Sum Postop Eval Completion status Anesthesia document: Postop Eval 1 completed: Yes Anesthesia Postop Eval I Summary Anesthesia Postop Eval I Summary: Anesthesia Postop Eval I: Assessment Summary Airway patent Yes 01/21/24 09:15 Spontaneous unlabored Yes 01/21/24 09:15 respirations Mental status Awake,Calm 01/21/24 09:15 nausea No 01/21/24 09:15 Vomiting No 01/21/24 09:15 Anesthesia Postop Eval I: Fluid Summary Crystalloid volume administer 500 01/21/24 09:15 (ml) Colloids volume administered ( ml) Blood Product volume administered (ml) Total IV fluid infused 500 01/21/24 09:15 Anesthesia Postop Eval I: Summary Notes Anesthesia Complication No 01/21/24 09:15 Anesthesia Complication Comment: Post-operative progress note Anesthesia: Postop Eval II Evaluation Mental status: Awake Pain Level: 0 nausea: No Vomiting: No
== END 2024-01-21 10:18 | disposition home or self-care (01) ==
LOC: SDC 07:29 → AC 07:30
PROVIDERS: Referring Provider Anesthesiology Pain Medicine; Visit Provider Anesthesiology Pain Medicine
PROC: 3E0S3BZ Introduction of Anesthetic Agent into Epidural Space, Percutaneous Approach (ICD-10-PCS; principal; 2024-01-21 08:55)
DX: M51.17 Intervertebral disc disorders with radiculopathy, lumbosacral region (principal); M48.07 Spinal stenosis, lumbosacral region; M96.1 Postlaminectomy syndrome, not elsewhere classified; K21.9 Gastro-esophageal reflux disease without esophagitis; I10 Essential (primary) hypertension; Z79.899 Other long term (current) drug therapy; Z79.82 Long term (current) use of aspirin
CPT/HCPCS: 01992; 64483; 72100; 93005; J7120; J2405

== ENCOUNTER 2024-04-07 06:55 | Day surgery (SDC) | payer MEDICARE, SELFPAY ==
[2024-04-07] VITALS (8 sets, daily range): BP systolic 89–149; BP diastolic 45–69; PULSE 53–75; RESP 16–18; TEMP 36.2–36.5; O2SAT 95–98; BMI 25.3
[2024-04-07] MEDS: Lidocaine 1% (30 ml sdv) 30 ML Vial (06:51)
[2024-04-07] MEDS: MethylPREDNISolone Acetate 40 MG/ML Vial (06:52)
[2024-04-07] MEDS: Lactated Ringers 1,000 ML 15 ML IV (07:21)
--- NOTE | 2024-04-07 07:33 | PRE.ANES_ITS ---
ASA Classification* ASA Classification ASA Classification: 2 Assessment & Plan Anesthesia* Anesthesia Assessment Anesthesia Assessment: Discussed sedation and/or anesthesia options, risks, benefits, and alternatives with patient/parents/legal guardian/POA. Questions invited. The patient/parents/legal guardian/POA seems to understand and agrees to proceed with anesthesia plan. Reviewed the physical assessment, medical history, allergy history and patient home medications list prior to surgery/procedure/anesthetic and documented any changes. Performed airway and anesthesia risk assessments. Anesthesia Type Anesthesia Type: MAC Anesthesia Focused Assessment* Temperature: 97.7 F Pulse Rate: 75 Blood Pressure: 139/69 Respiratory Rate: 18 Pulse Ox: 98 Airway Assessment Mouth opens: >3 cm Mallampati Score: II Focused Labs Anesthesia Preop lab: CBC CHEMISTRY COAG Pre-Assessment Diagnosis/Proposed Procedure Planned Operative Procedure(s): lumbar RFA l4,5,s1 Anesthesia History Anesthesia History - client success manager: Anesthesia History - client success manager Hx Hospitalization No 06/08/23 12:37 Any Problems With Anesthesia No 06/08/23 12:37 Cholinesterase deficiency No 06/08/23 12:37 You/Your Family Experience No 06/08/23 12:37 fever (hyperthermia) with Relationship Recent Exposure to Contagious No 04/07/24 07:26 Disease Does patient have nerve No 06/08/23 12:37 stimulator Patient instructed to have device shut off --Does patient have Pacemaker No 04/07/24 07:26 or ICD? When Was Last Pacemaker Check QUESTION #4 FULL TEXT: You/Your Family Experience fever (hyperthermia) with Anesthesia Last Oral Intake Last Oral intake: Last Oral Intake NPO since 00:00 04/07/24 07:26 Meds taken in AM with sips of No 04/07/24 07:26 water? Meds patient instructed to take am of surgery PONV PONV - client success manager: PONV - client success manager Female HX of Motion Sickness HX of N/V After Surgery Non-Smoker Duration of Surgery greater than 60 minutes Number of Risk Factors PONV Score Height & Weight Height & Weight: Anesthesia: Height & Weight Height 5 ft 4 in 04/07/24 07:26 Weight: 67.041 kg 04/07/24 07:26 Body Mass Index (BMI) 25.3 04/07/24 07:26 Respiratory Assessment Respiratory Assessment - client success manager: Respiratory Tract Infection Hx - client success manager Hx Respiratory Tract Infection No 06/08/23 12:37 STOP Sleep Apnea STOP Sleep Apnea - client success manager: STOP Sleep Apnea - client success manager Hx Hypertension Yes: CONTROLLED ON MED 06/08/23 12:37 Hx Sleep Apnea No 01/21/24 09:45 CPAP BIPAP Do you snore loudly (louder than talking or can be heard Do you often feel tired/ fatigued/ sleepy during daytime? Has anyone observed you stop breathing during sleep? STOP Results QUESTION #5 FULL TEXT : Do you snore loudly (louder than talking or can be heard through closed doors)? Tobacco Use History Tobacco Use History - client success manager: Tobacco Use History - client success manager Tobacco Use Smoking Status Never smoker 06/08/23 12:37 Hx Tobacco Use No 06/08/23 12:37 Years Smoking Packs Smoked per Day Smoking Cessation Date was within the last 15 years Hx Smoking Cessation Date Hx Smoking Cessation Counseling Hematologic Medial History Hematologic Hx - client success manager: Hematologic Medical Hx - horticultural farmworker Hx of Blood Transfusion Hx of Transfusion in last 3 Months Date of Last Transfusion (if within last 3 months) Ever experience any problems with transfusion(s)? Specify any problems Hx of Preganancy in last 3 Months Nurse Filling Out Transfusion & Questions: Date: Time: Patient unable to answer at this time (ie. confused, unrespo /Reproduction History /Reproductive History - client success manager: /Reproductive Hx- client success manager Hx Now Gestational Age (in weeks): EDC: Hx Hx Para Hx Section SAB Active Medications Active Medications: Current Medications Generic Name Dose Route Start Last Admin Trade Name Freq PRN Reason Stop Dose Admin Lactated Ringer's 1,000 mls @ 15 mls/hr 04/07/24 07:15 04/07/24 07:21 IV 15 mls/hr .Q48H MARIBELL Administration PFSH Medical History Post-menopausal Arthritis Anemia Non-smoker History of echocardiogram History of stress test Wears glasses Depression Anxiety High cholesterol Back pain Seizures Gastric reflux Hypertension Home Medications ?Medication ?Instructions ?Recorded ?Last Taken ?Type amlodipine 5 mg tablet 5 mg PO DAILY 03/01/22 04/06/24 History aripiprazole 10 mg tablet (Abilify) 10 mg PO DAILY 03/01/22 04/06/24 History aspirin 81 mg tablet,delayed 81 mg PO DAILY 03/01/22 04/06/24 History release azelastine 137 mcg (0.1 %) nasal 1 spray intranasal BID 03/01/22 04/06/24 History spray fluticasone propionate 50 1 spray intranasal DAILY 03/01/22 04/06/24 History mcg/actuation nasal spray,suspension (Flonase Allergy Relief) levetiracetam 500 mg tablet 500 mg PO DAILY 03/01/22 04/06/24 History (Keppra) losartan 50 mg tablet 50 mg PO BID 03/01/22 04/06/24 History primidone 50 mg tablet (Mysoline) 50 mg PO QHS 03/01/22 04/06/24 History rabeprazole 20 mg tablet,delayed 20 mg PO DAILY 03/01/22 04/06/24 History release (AcipHex) rosuvastatin 20 mg tablet (Crestor) 20 mg PO QHS 03/01/22 04/06/24 History tolterodine 2 mg tablet (Detrol) 4 mg PO DAILY 03/01/22 04/06/24 History sertraline 25 mg tablet (Zoloft) 25 mg PO DAILY 04/07/24 04/06/24 History Allergy/AdvReac Type Severity Reaction Status Date / Time amoxicillin (From Augmentin) Allergy Hives Verified 01/21/24 07:46 clavulanic acid (From Allergy Hives Verified 01/21/24 07:46 Augmentin) Sulfa (Sulfonamide Allergy Hives Verified 01/21/24 07:46 Antibiotics) Surgical History Hx of surgical procedure Social History Smoking Status: Never smoker Review of Systems (Anesthesia) ROS Narrative System reviewed and no additional complaints, except as documented.
--- NOTE | 2024-04-07 07:55 | PCM.POST.ANE ---
Anesthesia: Postop Eval I Current Vital Signs Temperature: 97.2 F Pulse Rate: 54 Blood Pressure: 89/54 Respiratory Rate: 16 Pulse Ox: 98 Oxygen Delivery Method: Room Air Assessment Airway patent: Yes Spontaneous unlabored respirations: Yes Mental status: Awake and Calm nausea: No Vomiting: No Anesthesia Complication: No Fluid Hydration Crystalloid volume administer (ml): 200 Total IV fluid infused: 200 Progress Note Anesthesia document: Postop Eval 1 completed: Yes
--- NOTE | 2024-04-07 08:07 | RAD_ITS ---
PROCEDURE: Right L4-S1 medial branch radiofrequency ablation. DATE OF EXAMINATION: April 07, 2024. INDICATION: Female, 78 years old. Chronic back pain. FLUOROSCOPY TIME (if supplied): (10.3 seconds) minutes/seconds. 3.58 mGy. 8 images were submitted. RAD/L/S Spine Min 4 Views IMPRESSION: Fluoroscopic services provided for right L4 S1 medial branch radiofrequency ablation. Electronically Signed: Naeem Martines MD at 11:16 EDT ,
--- NOTE | 2024-04-07 08:31 | PCM.OPRPT ---
Report of Operation Date of Procedure: 04/07/24 Pre-Operative Diagnosis: Lumbosacral spondylosis, lumbosacral degenerative disc disease, lumbar facet arthropathy Post-Operative Diagnosis: Lumbosacral spondylosis, lumbosacral degenerative disc disease, lumbar facet arthropathy Surgery/Procedure Performed:: Right-sided lumbar radiofrequency ablation of the medial branch L4, L5, S1 Type of Anesthesia: MAC Estimated Blood Loss (mL): Minimal Description of Procedure: History and physical today was reviewed. Risks and benefits of procedure explained. The patient understood, agreed to the procedure and informed consent was obtained. IV inserted per routine protocol. The patient was taken to the operating room, placed in the prone position with a pillow positioned underneath the abdomen. The right side of the lower back was prepped and draped in a sterile fashion using iodine x 3. Under fluoroscopy guidance, on an oblique view, the L3 through S1 vertebral bodies were visualized. The skin and subcutaneous tissue was anesthetized with approximately 10 mL of 1% lidocaine using a 25-gauge regular needle. Under direct visualization with fluoroscopy at approximately 25-degree angle, starting on the right L3, ending on the right S1 passing through the L4-L5 using a 20-gauge 15 cm with a 10 mm curved active tip radiofrequency ablation needle the needle passed through the skin. The tip of the needle was maneuvered and directed towards the superior and medial gutter of the transverse process at the vicinity of the medial branch. Once the tip of the needle was in contact with the bone, the needle pulled approximately 2 mm up the bone. The stylet of each needle was then removed. After negative aspiration of blood with CSF and confirmation of AP as well as oblique view, radiofrequency ablation probe was then inserted at each level. Impedance was then recorded at L3 to be 308, at L4 281, at L5 301, at S1 228 ohm. Motor-evoked potential was then initiated to 1.5 volt without any motor response at each corresponding level. The probe was then removed intact and a total of 6 mL preservative-free 1% lidocaine was injected in divided doses between those 4 levels after negative aspiration of blood with CSF. The radiofrequency ablation probe was then reinserted after confirmation of AP, oblique as well as lateral view. Radiofrequency ablation was then initiated to 80 degrees Celsius for 90 seconds at each level. Once concluded, the probe was then removed intact and a total of 6 mL of preservative-free 0.25% Marcaine with 40 mg Depo-Medrol was injected in divided doses between those 4 levels. The needles were then removed intact. The patient experienced no signs or symptoms of intrathecal, intravascular injection. The patient experienced no paraesthesia. The procedure was completed without any apparent difficulty, any complication. The patient appeared to tolerate well. Sensory as well as motor exam was unchanged from prior to procedure. ASSESSMENT AND PLAN: This is a 78-year-old female with lumbosacral spondylosis, lumbosacral degenerative disc disease, lumbar facet arthropathy, status post right-sided radiofrequency ablation of the medial branch L4 through S1. The patient will continue her current medications. The patient will follow up in approximately 2 weeks for reevaluation. Complications None
--- NOTE | 2024-04-07 08:45 | POSTOPAN2_ITS ---
Anesthesia Postop Eval I Sum Postop Eval Completion status Anesthesia document: Postop Eval 1 completed: Yes Anesthesia Postop Eval I Summary Anesthesia Postop Eval I Summary: Anesthesia Postop Eval I: Assessment Summary Airway patent Yes 04/07/24 08:30 BUSINESS CONTINUITY PLANNING DIRECTOR.[email or web address] Spontaneous unlabored Yes 04/07/24 08:30 BUSINESS CONTINUITY PLANNING DIRECTOR.[email or web address] respirations Mental status Awake,Calm 04/07/24 08:30 BUSINESS CONTINUITY PLANNING DIRECTOR.[email or web address] nausea No 04/07/24 08:30 BUSINESS CONTINUITY PLANNING DIRECTOR.[email or web address] Vomiting No 04/07/24 08:30 BUSINESS CONTINUITY PLANNING DIRECTOR.SCHR Anesthesia Postop Eval I: Fluid Summary Crystalloid volume administer 200 04/07/24 08:30 BUSINESS CONTINUITY PLANNING DIRECTOR.SCHR (ml) Colloids volume administered ( ml) Blood Product volume administered (ml) Total IV fluid infused 200 04/07/24 08:30 BUSINESS CONTINUITY PLANNING DIRECTOR.SCHR Anesthesia Postop Eval I: Summary Notes Anesthesia Complication No 04/07/24 08:30 BUSINESS CONTINUITY PLANNING DIRECTOR.SCHR Anesthesia Complication Comment: Post-operative progress note Anesthesia: Postop Eval II Evaluation Mental status: Awake Pain Level: 3 nausea: No Vomiting: No
--- NOTE | 2024-04-07 08:45 | PCM.POSTANE2 ---
Anesthesia Postop Eval I Sum Postop Eval Completion status Anesthesia document: Postop Eval 1 completed: Yes Anesthesia Postop Eval I Summary Anesthesia Postop Eval I Summary: Anesthesia Postop Eval I: Assessment Summary Airway patent Yes 04/07/24 08:30 [email or web address] Spontaneous unlabored Yes 04/07/24 08:30 [email or web address] [email or web address] respirations Mental status Awake,Calm 04/07/24 08:30 [email or web address] nausea No 04/07/24 08:30 BULL [email or web address] Vomiting No 04/07/24 08:30 [email or web address] Anesthesia Postop Eval I: Fluid Summary Crystalloid volume administer 200 04/07/24 08:30 [email or web address] (ml) Colloids volume administered ( ml) Blood Product volume administered (ml) Total IV fluid infused 200 04/07/24 08:30 [email or web address] Anesthesia Postop Eval I: Summary Notes Anesthesia Complication No 04/07/24 08:30 BULL [email or web address].[email or web address] Anesthesia Complication Comment: Post-operative progress note Anesthesia: Postop Eval II Evaluation Mental status: Awake Pain Level: 3 nausea: No Vomiting: No
== END 2024-04-07 09:07 | disposition home or self-care (01) ==
LOC: SDC 07:01 → AC 08:05
PROVIDERS: PCP Family Medicine; Referring Provider Anesthesiology Pain Medicine; Visit Provider Anesthesiology Pain Medicine
PROC: (CPT 64635; principal; 2024-04-07 08:25)
DX: M47.817 Spondylosis without myelopathy or radiculopathy, lumbosacral region (principal); M51.37 Other intervertebral disc degeneration, lumbosacral region; M46.96 Unspecified inflammatory spondylopathy, lumbar region; I10 Essential (primary) hypertension; F32.A Depression, unspecified; F41.9 Anxiety disorder, unspecified; E78.00 Pure hypercholesterolemia, unspecified; Z79.899 Other long term (current) drug therapy; Z79.82 Long term (current) use of aspirin
CPT/HCPCS: 64635; 64636; 01992; 72110; 76000; J7120